=== PATIENT | male | born 1955 | race Caucasian/White ===

== ENCOUNTER 2018-09-15 14:58 | Emergency (ER) | payer MEDICAID ==
[~2018-09-15] VITALS: Ht 172.7 cm; Wt 57.7 kg
[2018-09-15 15:01] VITALS: Ht 172.7 cm; Wt 57.7 kg
[2018-09-15 15:36] LABS: APTT 25.4 SECONDS (22.8-39.4); INR 0.94 (0.85-1.17); PROTIME 12.1 SECONDS (11.6-15.0)
[2018-09-15 15:37] LABS: D-DIMER-QUANTITATIVE 0.27 ug/mLFEU (0.20-0.54)
[2018-09-15 15:41] LABS: ALBUMIN 3.3 g/dL (3.4-5.0); ALKALINE PHOSPHATASE 75 U/L (46-116); ALT (SGPT) 19 U/L (10-68); BILIRUBIN - TOTAL 0.28 mg/dL (0.2-1.3); CALC OSMOLALITY 283 mosm/kg (275-300); CALCIUM 8.5 mg/dL (8.5-10.1); CARBON DIOXIDE 30.1 mmol/L (21.0-32.0); CHLORIDE - SERUM 102 mmol/L (98-107); GLUCOSE 87 mg/dL (74-106); PROTEIN - SERUM 6.8 g/dL (6.4-8.2); SODIUM 140 mmol/L (136-145); UREA NITROGEN 30 mg/dL (7-18); eGFR NON AFRICAN AMERICAN 81 mL/min (90-120)
[2018-09-15 15:42] LABS: BASOPHILS 0.1 % (0-2); EOSINOPHILS 0.1 % (0-7); HEMATOCRIT 40.3 % (42.0-54.0); HEMOGLOBIN 13.1 g/dL (13.5-17.5); IMMATURE GRANULOCYTES 0.1 % (0-5); LYMPHOCYTES 4.1 % (15-50); MCH 31.9 pg (26.0-34.0); MCHC 32.5 g/dL (31.0-37.0); MCV 98.1 fL (80.0-100.0); MEAN PLATELET VOLUME 8.7 fL (7.4-10.4); MONOCYTES 5.8 % (2-11); NEUTROPHILS 89.8 % (40-80); PLATELET COUNT 216 10x3/uL (130-400); RBC 4.11 10x6/uL (4.20-6.10); WBC 11.7 10x3/uL (4.8-10.8)
[2018-09-15 15:53] LABS: CKMB 6.2 U/L (0.0-3.6); CREATINE KINASE 200 UL (21-232); MAGNESIUM - SERUM 1.6 mg/dL (1.8-2.4); THYROID STIMULATING HORMONE 1.27 uIU/mL (0.36-3.74); TROPONIN-I < 0.017 ng/mL (0.000-0.060)
[2018-09-15] MEDS ORDERED: ULTRAM50 MG PO (17:27)
[2018-09-15] MEDS ORDERED: CYCLOBENZAPRINE10 MG PO (17:29)
[2018-09-15] MEDS ORDERED: PREDNISONE10 MG PO (17:29)
[2018-09-15] MEDS ORDERED: EC-NAPROSYN500 MG PO (17:29)
[2018-09-15 17:37] VITALS: BP 148/85
== END 2018-09-15 18:29 | disposition home or self-care (01) ==
LOC: D.ER 14:58
PROVIDERS: Emergency Medicine
DX: J44.1 Chronic obstructive pulmonary disease with (acute) exacerbation (principal); R09.1 Pleurisy; F17.200 Nicotine dependence, unspecified, uncomplicated

== ENCOUNTER 2019-06-10 16:29 | Emergency (ER) | payer MEDICAID ==
[~2019-06-10] VITALS: Ht 172.7 cm; Wt 59.1 kg
[~2019-06-10 16:29] MED LIST: CYCLOBENZAPRINE10 MG PO; EC-NAPROSYN500 MG PO; PREDNISONE10 MG PO; ULTRAM50 MG PO
[2019-06-10 16:34] VITALS: Ht 172.7 cm; Wt 59.1 kg
[2019-06-10 17:03] LABS: BASOPHILS 0.1 % (0-2); EOSINOPHILS 0.2 % (0-7); HEMATOCRIT 44.2 % (42.0-54.0); HEMOGLOBIN 14.7 g/dL (13.5-17.5); IMMATURE GRANULOCYTES 0.2 % (0-5); LYMPHOCYTES 14.6 % (15-50); MCHC 33.3 g/dL (31.0-37.0); MCV 96.3 fL (80.0-100.0); MEAN PLATELET VOLUME 8.6 fL (7.4-10.4); MONOCYTES 8.9 % (2-11); RBC 4.59 10x6/uL (4.20-6.10); RDW 13.6 % (11.5-14.5); WBC 9.7 10x3/uL (4.8-10.8)
[2019-06-10 17:06] LABS: PLATELET COUNT 301 10x3/uL (130-400)
[2019-06-10 17:11] LABS: INR 0.99 (0.85-1.17); PROTIME 12.6 SECONDS (11.6-15.0)
[2019-06-10 17:12] LABS: APTT 29.4 SECONDS (22.8-39.4)
[2019-06-10 17:19] LABS: ALBUMIN 3.4 g/dL (3.4-5.0); ALKALINE PHOSPHATASE 98 U/L (46-116); ALT (SGPT) 13 U/L (10-68); BILIRUBIN - TOTAL 0.51 mg/dL (0.2-1.3); CALC OSMOLALITY 281 mosm/kg (275-300); CARBON DIOXIDE 33.2 mmol/L (21.0-32.0); CHLORIDE - SERUM 100 mmol/L (98-107); GLUCOSE 133 mg/dL (74-106); POTASSIUM - SERUM 4.1 mmol/L (3.5-5.1); PROTEIN - SERUM 7.9 g/dL (6.4-8.2); SODIUM 138 mmol/L (136-145); UREA NITROGEN 24 mg/dL (7-18); eGFR NON AFRICAN AMERICAN 80 mL/min (90-120)
[2019-06-10 17:28] LABS: CKMB 6.6 U/L (0.0-3.6); CREATINE KINASE 146 UL (21-232)
[2019-06-10 17:29] LABS: TROPONIN-I < 0.017 ng/mL (0.000-0.060)
[2019-06-10 18:07] LABS: APPEARANCE CLEAR (CLEAR); BILIRUBIN NEGATIVE (NEGATIVE); COLOR YELLOW (YELLOW); GLUCOSE NEGATIVE (NEGATIVE); KETONE NEGATIVE (NEGATIVE); NITRITE NEGATIVE (NEGATIVE); PROTEIN TRACE mg/dL (NEGATIVE); UROBILINOGEN NORMAL (NORMAL)
[2019-06-10 18:08] LABS: RED CELLS - URINE 0-5 /hpf (0-5); WHITE CELLS - URINE 0-5 /hpf (NEGATIVE)
[2019-06-10 18:09] LABS: BACTERIA FEW /hpf (NEGATIVE); EPITHELIAL CELLS 0-5 /hpf (0-5)
[2019-06-10] MEDS ORDERED: KEFLEX500 MG PO (19:43)
[2019-06-10] MEDS ORDERED: CLEOCIN HCL300 MG PO (19:43)
[2019-06-10] MEDS ORDERED: MOBIC7.5 MG PO (19:43)
[2019-06-10 20:12] LABS: ERYTHROCYTE SEDIMENTATION RATE 46 mm/hr (0-20)
[2019-06-10 21:50] VITALS: BP 162/78
== END 2019-06-10 21:51 | disposition home or self-care (01) ==
LOC: D.ER 16:29
PROVIDERS: Family Medicine
DX: L03.116 Cellulitis of left lower limb (principal)